=== PATIENT | male | born 1965 | race Caucasian/White ===

== ENCOUNTER → 2018-07-11 15:47 | Outpatient (CLI) | payer BC, SELFPAY ==
--- NOTE | 2018-07-11 15:58 | MRI_ITS ---
STUDY: MRI LUMBAR SPINE WITHOUT CONTRAST REASON FOR EXAM: Male, 53 years old. Severe low back pain. Prior L4-5 laminectomy. TECHNIQUE: Standardized fat and water weighted pulse sequences were obtained in the sagittal and axial planes. COMPARISON: None FINDINGS: T12-L1: Normal endplates. Normal disc height, hydration and morphology. Normal bilateral facet joints. Normal central canal and bilateral lateral recesses. Normal bilateral intervertebral neural foramina. Normal lumbar lordosis. There is no substantial scoliosis. Normal conus medullaris that terminates at the T11-12 level. L1-2: Normal endplates. Normal disc height, hydration and morphology. Normal bilateral facet joints. Normal central canal and bilateral lateral recesses. Normal bilateral intervertebral neural foramina. L2-3: Normal endplates. Normal disc height, hydration and morphology. Normal bilateral facet joints. Normal central canal and bilateral lateral recesses. Normal bilateral intervertebral neural foramina. L3-4: Normal endplates. Disc dehydration and mild disc space narrowing. Normal bilateral facet joints. Normal central canal and bilateral lateral recesses. There is mild right foraminal encroachment due to spurring. There is evidence of prior right laminotomy. L4-5: Normal endplates. Disc dehydration and moderate disc space narrowing. There is a moderate-sized left paracentral and lateral recess disc extrusion. This causes displacement of the traversing left L5 nerve root. There is mild effacement of the left ventral thecal sac. There is mild inferior encroachment of the left neural foramen due to spurring. Right neural foramen is patent. L5-S1: Normal endplates. Hypoplastic disc space. Normal bilateral facet joints. Normal central canal and bilateral lateral recesses. Normal bilateral intervertebral neural foramina. Normal visualized sacral ala. Normal visualized paraspinous soft tissue structures. MRI/Spine Lumbar (Routine) IMPRESSION: 1. Moderate left L4-5 disc extrusion with displacement of the left L5 nerve root. 2. Evidence of prior L3-4 laminotomy on the right. Per reported history, patient is status post L4-5 laminotomy. If the history is correct, this suggests a transitional lumbosacral vertebral body, and radiographic correlation is advised for surgical planning. Electronically Signed: Kath Nair MD at 20:06 EST Tel , Service support ,
--- OUTSIDE RECORDS SUMMARY | 2018-10-13 04:52 | XMS RPT_ITS ---
:1965 Author Organization [facility] Care Team Providers Name Role Phone Center, Alejandra S Attending Unavailable Center, Alejandra S Admitting Unavailable Center, Alejandra S Attending Unavailable Center, Alejandra S Primary Care Unavailable Rings, Alfredo Admitting Unavailable Rings, Alfredo Attending Unavailable Center, Alejandra S Primary Care Unavailable Curly Shookrey A Admitting Unavailable Bo Shook Attending Unavailable No Doctor Assigned, Nodr Primary Care Unavailable TREMAINE LR Attending Unavailable TREMAINE LR Referring Unavailable ROYAL, ALEJANDRA Primary Care Unavailable SYSTEM, PROVIDER NOT IN Referring Unavailable ROYAL, ALEJANDRA S. Primary Care Unavailable JONATHAN VASQUEZ Consulting Unavailable ADALBERTO COX Admitting Unavailable CRISTAL FLOWERS Attending Unavailable SHANIKA ELLIOTT Consulting Unavailable CRISTAL FLOWERS Consulting Unavailable PROBLEMS PROBLEMS DATE TYPE CONDITION / CODE ATTENDING STATUS SOURCE 07/19/2018 Admitting Low back pain / CRISTAL FLOWERS [facility] diagnosis M54.5(ICD-10) SUJIT HOLLOWAY Repository 07/18/2018 Admitting Sciatica, left side CRISTAL FLOWRES [facility] diagnosis / M54.32(ICD-10) SUJIT HOLLOWAY Repository 07/18/2018 Admitting Other acute LIONEL CRISTAL [facility] diagnosis postprocedural pain SUJIT HOLLOWAY Repository / G89.18(ICD-10) PROCEDURES PROCEDURES No Procedure Records FoundRESULTS RESULTS XR FLUOROSCOPY LESS Observed: 07/20/2018 Status: F Source: [facility] ONE HOUR 2:38 PM ONE REPOSITORY Order Comment: Reason for exam?:disc herniation Injury/Trauma or Illness?:Illness/Other How long have you had these symptoms (acute/chronic)?:Unknown Type of Exam?:Unknown Additional signs and symptoms?: Fluoro time in minutes:.03 Fluoro dose in mGy?:.44 This is an auto finalized result. Please refer to patient chart for further information. information. information. SPINE LUMBAR Observed: 07/11/2018 Status: F Source: [place] (ROUTINE) 3:58 PM [facility] REPOSITORY [facility] Imaging Services [address] [place] [address] Spine Lumbar (Routine) MR#: [id number] Acct: [id number] Name: JIGAR BOWSER Rep #: [id number] : 1965 M 53 From: Kath Nair MD PCP: ALEJANDRA ANDINO Status: REG CLI Study: Spine Lumbar (Routine) Date of Exam: 07/11/18 Exam# [id number] Ordering Dr: LOREN EARL DC STUDY: MRI LUMBAR SPINE WITHOUT CONTRAST REASON FOR EXAM: Male, 53 years old. Severe low back pain. Prior L4-5 laminectomy. TECHNIQUE: Standardized fat and water weighted pulse sequences were obtained in the sagittal and axial planes. COMPARISON: None FINDINGS: T12-L1: Normal endplates. Normal disc height, hydration and morphology. Normal bilateral facet joints. Normal central canal and bilateral lateral recesses. Normal bilateral intervertebral neural foramina. Normal lumbar lordosis. There is no substantial scoliosis. Normal conus medullaris that terminates at the T11-12 level. L1-2: Normal endplates. Normal disc height, hydration and morphology. Normal bilateral facet joints. Normal central canal and bilateral lateral recesses. Normal bilateral intervertebral neural foramina. L2-3: Normal endplates. Normal disc height, hydration and morphology. Normal bilateral facet joints. Normal central canal and bilateral lateral recesses. Normal bilateral intervertebral neural foramina. L3-4: Normal endplates. Disc dehydration and mild disc space narrowing. Normal bilateral facet joints. Normal central canal and bilateral lateral recesses. There is mild right foraminal encroachment due to spurring. There is evidence of prior right laminotomy. L4-5: Normal endplates. Disc dehydration and moderate disc space narrowing. There is a moderate-sized left paracentral and lateral recess disc extrusion. This causes displacement of the traversing left L5 nerve root. There is mild effacement of the left ventral thecal sac. There is mild inferior encroachment of the left neural foramen due to spurring. Right neural foramen is patent. L5-S1: Normal endplates. Hypoplastic disc space. Normal bilateral facet joints. Normal central canal and bilateral lateral recesses. Normal bilateral intervertebral neural foramina. Normal visualized sacral ala. Normal visualized paraspinous soft tissue structures. MRI/Spine Lumbar (Routine) IMPRESSION: 1. Moderate left L4-5 disc extrusion with displacement of the left L5 nerve root. 2. Evidence of prior L3-4 laminotomy on the right. Per reported history, patient is status post L4-5 laminotomy. If the history is correct, this suggests a transitional lumbosacral vertebral body, and radiographic correlation is advised for surgical planning. Electronically Signed: Kath Nair MD at 20:06 EST Tel , Service support , CC: LOREN DOTYER; ALEJANDRA ANDINO Issuing Operator: Signed ALLERGIES ALLERGIES DATE TYPE / CODE NAME / CODE REACTION SEVERITY SOURCE Miscellaneous NO KNOWN [facility] Allergy/[id number](S ALLERGIES Repository NOMED CT) Drug/[id number](SNOM No Known [facility] ED CT) Allergies [facility] Repository ENCOUNTERS ENCOUNTERS ADMIT/DISCHARGE ACCOUNT NUMBER ADMITTING ENCOUNTER LOCATION SOURCE CLASS 07/18/2018/07/21/20 [id number] [facility], [facility] [place] [address] ADALBERTO MUIR titoom: One [id number]: 01 Repository 07/18/2018/07/18/20 [id number] [place], Emergency [facility] 18 [facility] ding:[facility] EDRoom: WR Repository 07/18/2018 [id number] Ambulatory [address] [place] [address] Repository 07/11/2018 [id number] Ambulatory [facility] ding:MRI Repository 07/10/2018/07/10/20 [id number] Center, Ambulatory [address] ding:[place] Repository nt MedicRoom: Room 1 07/05/2018/07/05/20 [id number] [place], Emergency [address] ding:[facility] EDRoom: WR Repository 07/05/2018 [id number] Ambulatory [address] [place] [address] Repository 04/20/2018/04/20/20 [id number] Ambulatory [address] ding:[place] Repository nt Medic PAYERS PAYERS ENCOUNTER GUARANTOR PAYER SUBSCRIBER SOURCE 07/18/2018 JIGAR Primary [facility] BENWAYDOB: Insurance:ANTHEMPolic BENWAYDOB: Repository y Number: [id number] EL[place] [id number] [address] [place], [place] Date:3690-13-[place], [place] [address]Hwl: [phone], [place] [address]Lpq: () [phone]: () [phone] 07/18/2018 JIGAR [facility] JIGAR [facility] BENWAYDOB: Insurance:ANTHEMPolic BENWAYDOB: [facility] y Number: Effective [id number] System [place] Date:2018-07-18 [place]ository [place], [place] 3658-73[place], [place] [address]Yln: Name:Catarino Choe MEGAN [address]Nzd: [address] [place] [address] () [address]SF: [phone] (HP) [phone] (WP) 07/18/2018 [facility] BENWAYDOB: Insurance:AnthemPolic BENWAYDOB: [facility] y Number: [id number] Repository [place] [id number] [address] [place], [place] Date:Plan Name:[place], [place] [id number]: [id number]: (HP) (HP) 07/11/2018 [facility] [id number] Insurance:ANTHEMPolic BENWAYDOB: [facility] [place] y Number: [id number] [id number] Repository [address]Mfg: (990) Date:[id number] [phone] () [address] [place] [address] [place] [address]AI: 07/11/2018 [facility]SELF [facility] Number: Effective Repository Date:2018-07-05 07/10/2018 [facility] BENUC HEALTHDOB: Insurance:1500 BENWAYDOB: [facility] ANTHEMPolicy Number: [id number] System [place] Effective 6 [place], [place] Date:2018-07-10 [place] [address]Kps: [id number] [address]Ufo: Name:CD:[id number] O () [address]Q[address], [place] ()Tel: [phone]: (WP) [phone] 07/05/2018 [facility]MPolic BENWAYDOB: [facility] y Number: Effective [id number] System [place] Date:2018-07-05 [place] [facility] [place] [id number] [address]Mrx: Name:Catarino GUZMAN [address]Qmt: [id number], [place] (HP) [phone]: [phone] (HP) [phone] () 07/05/2018 [facility]: [facility] [id number] [facility] Number: [id number] Repository [facility] Effective Date: [place], [place] Name:[facility] [place] [id number]: [phone]: (HP) (HP)
== END ==
PROVIDERS: Family Provider Internal Medicine; PCP Internal Medicine
DX: M54.5 Low back pain (principal); M51.36 Other intervertebral disc degeneration, lumbar region; M54.2 Cervicalgia
CPT/HCPCS: 72148